=== PATIENT | male | born 1990 | race Caucasian/White ===

== ENCOUNTER 2017-04-22 15:53 | Emergency (ER) | END 2017-04-22 21:42 | disposition home or self-care (01) ==

== ENCOUNTER 2018-03-04 11:49 | Emergency (ER) | payer OTHER ==
[~2018-03-04] VITALS: Ht 165.1 cm; Wt 59.1 kg
[~2018-03-04 11:49] MED LIST: HYDR-4011 PO; PRED20TA PO
[2018-03-04 11:56] VITALS: Ht 165.1 cm; Wt 59.1 kg
[2018-03-04] MEDS ORDERED: HALOPERIDOL 5 MG INJ IM STA (12:03)
[2018-03-04] MEDS ORDERED: DIPHENHYDRAMINE 50 MG INJ ONE (12:07)
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
[2018-03-04] MEDS ORDERED: DIPHENHYDRAMINE 50 MG INJ IM ONE (12:30)
[2018-03-04] MEDS ORDERED: HALOPERIDOL 5 MG INJ IM ONE (13:30)
[2018-03-05] MEDS ORDERED: HALOPERIDOL 5 MG INJ ONE (02:25)
[2018-03-05] MEDS ORDERED: DIPHENHYDRAMINE 50 MG INJ ONE (02:25)
[2018-03-05] MEDS ORDERED: LORAZEPAM 2 MG INJ ONE (02:25)
[2018-03-05] MEDS ORDERED: DIPHENHYDRAMINE 50 MG INJ IM ONE (02:30)
[2018-03-05] MEDS ORDERED: HALOPERIDOL 5 MG INJ IM ONE ×2 (02:30→03:50)
[2018-03-05] MEDS ORDERED: LORAZEPAM 2 MG INJ IM ONE (02:30)
[2018-03-05 09:11] VITALS: BP 106/74; PULSE 95; RESP 18
== END 2018-03-05 11:10 ==
LOC: E/R 11:49
DX: T42.4X1A Poisoning by benzodiazepines, accidental (unintentional), initial encounter (principal); R40.2142 Coma scale, eyes open, spontaneous, at arrival to emergency department; R40.2362 Coma scale, best motor response, obeys commands, at arrival to emergency department; R40.2252 Coma scale, best verbal response, oriented, at arrival to emergency department
CPT/HCPCS: 36415; 80053; 80306; 80307; 85025; 96372; J1200; J1630; J2060; Z7502; Z7610